=== PATIENT | female | born 1985 | race Caucasian/White ===

== ENCOUNTER → 2019-01-05 13:14 | Outpatient (CLI) | payer MEDICAID, SELFPAY ==
[2019-01-05 16:32] LABS: Chlamydia Trachomatis by PCR Negative (Negative)
[2019-01-05 16:33] LABS: Neisserai gonorrhoeae by PCR Negative (Negative); Probe Check PASS; Sample Adequacy Control PASS; Specimen Processing Control PASS
[2019-01-08 09:11] LABS: HPV Genotype 16, Aptima Negative (Negative)
[2019-01-08 13:08] LABS: HPV APTIMA, High Risk Positive (Negative); HPV Genotype 18,45 Aptima Negative (Negative)
== END ==
PROVIDERS: Visit Provider Obstetrics & Gynecology
DX: Z11.3 Encounter for screening for infections with a predominantly sexual mode of transmission (principal); Z12.4 Encounter for screening for malignant neoplasm of cervix
CPT/HCPCS: 87491; 87591; 87624; 88175; G0145

== ENCOUNTER → 2019-01-26 | Outpatient (CLI) | payer MEDICAID, SELFPAY ==
--- NOTE | 2019-01-26 10:30 | CER_PTH ---
PATIENT: AFSHIN SYKES LOC: [facility]#:[id number] AGE/SX: 33/F ROOM: RE01/26/[address]: Dr. 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 Rare endocervical glands present. No evidence of dysplasia. AM:jordyn 01/27/19 MICROSCOPIC DESCRIPTION Slides are reviewed. GROSS DESCRIPTION Received in fixative is one container labeled with the patient's name and designated ECC. The specimen consists of scant fragments of tissue, entirely submitted for cell block preparation. / SJ:jordyn 01/26/19 TC:5 CPT: 32183
== END | disposition home or self-care (01) ==
LOC: LABSPEC 13:15
PROVIDERS: Referring Provider Obstetrics & Gynecology; Visit Provider Obstetrics & Gynecology
DX: R87.810 Cervical high risk human papillomavirus (HPV) DNA test positive (principal)
CPT/HCPCS: 88305

== ENCOUNTER → 2020-08-23 11:32 | Outpatient (CLI) | payer MEDICAID, SELFPAY ==
[2020-08-23 11:41] LABS: Bacteria 0 SEEN /hpf (None Seen); Mucous, Urine 0 SEEN /hpf (<or=2+); Red Blood Cells-Urine 0 SEEN /hpf (0-5); Squamous Epithelial Cells - UA 0 SEEN /hpf (5-10); White Blood Cells 0 SEEN /hpf (0-5)
[2020-08-23 12:42] LABS: Color, Urine Straw (Yellow); Glucose, Dipstick 1000 mg/dl (Normal); Ketone-Dipstick Negative (Negative); Leukocyte Esterase-Dipstick Negative /ul (Negative); Nitrite-Dipstick Negative (Negative); Occult Blood-Urine Negative /ul (Negative); Protein-Dipstick Negative (Negative); Urine Bilirubin Dipstick Negative (Negative); Urine Clarity Sl. Cloudy (Clear); Urine Urobilinogen Normal (Normal)
[2020-08-29 16:50] LABS: HPV APTIMA, High Risk Negative (Negative)
== END ==
PROVIDERS: Visit Provider Obstetrics & Gynecology
DX: Z12.4 Encounter for screening for malignant neoplasm of cervix (principal); R35.0 Frequency of micturition
CPT/HCPCS: 81001; 87086; 87088; 87624; 88175; G0145

== ENCOUNTER → 2022-09-18 | Outpatient (CLI) | payer MEDICAID, SELFPAY ==
[2022-09-27 14:54] LABS: HPV APTIMA, High Risk Negative (Negative)
== END | disposition home or self-care (01) ==
LOC: LABSPEC 16:26
PROVIDERS: Visit Provider Student in an Organized Health Care Education/Training Program
DX: Z12.4 Encounter for screening for malignant neoplasm of cervix (principal)
CPT/HCPCS: 87624; 88175; G0145

== ENCOUNTER 2023-09-17 16:53 | Emergency (ER) | payer MEDICAID, SELFPAY ==
[2023-09-17 16:54] VITALS: BP 114/81; PULSE 107; RESP 14; TEMP 36.1; O2SAT 100; BMI 45.1
--- NOTE | 2023-09-17 16:55 | RAD_ITS ---
INDICATION: trauma EXAMINATION/TECHNIQUE: X-RAY - LEFT XR Hand Min 3 Views 3 VIEWS COMPARISON: FINDINGS: No acute fracture or dislocation. No destructive bone changes. Joint spaces are well-maintained. Normal alignment. Soft tissues are unremarkable. No radiopaque foreign body or soft tissue gas. RAD/Hand Min 3 Views IMPRESSION: Negative. Electronically Signed: Melissa Moreau MD at 17:26 EST Reading Location ID and State: [id number] / Tel , Service support ,
--- NOTE | 2023-09-17 17:40 | EDS_ITS ---
HPI <SPEEDY Carmona - Last Filed: 09/17/23 17:44> History of Present Illness Chief Complaint: Upper Extremity Injury Narrative Narrative: Patient states her fianc? was falling and she was trying to keep him from slipping when she fell and hit her left lateral hand on the ground. No wounds, weakness or paresthesias. She is right-hand dominant. PFSH <SPEEDY Carmona - Last Filed: 09/17/23 17:44> PFSH Allergy/AdvReac Type Severity Reaction Status Date / Time No Known Allergies Allergy Verified 09/17/23 16:54 ROS <SPEEDY Carmona Last Filed: 09/17/23 17:44> ROS ED ROS Narrative Neuro: Negative for motor/sensory dysfunction. Skin: Negative for wound. Musc: Positive for left hand pain, trauma. EXAM <SPEEDY Carmona Last Filed: 09/17/23 17:44> Physical Exam Narrative Exam Narrative: CONST: Patient sitting in no acute distress. EYES: Normal inspection. NECK: Normal inspection. RESP: No respiratory distress, CTAB. CVS: Regular rate and rhythm, no murmur, no gallop. SKIN: Color normal, no rash, warm, dry, intact. EXTREMITIES: Normal appearance of left upper extremity, slight tenderness over left proximal fifth metacarpal. No tenderness of the elbow wrist or the rest of the hand. Full range of motion, normal motor and sensory function in median radial ulnar distributions, 2+ radial pulse and brisk cap refill. NEURO: Oriented x4. PSYCH: Normal affect. Const Vital Signs: 09/17/23 16:54 Temperature 97 F L Temperature Source Temporal Pulse Rate 107 H Respiratory Rate 14 Blood Pressure 114/81 H Blood Pressure Mean 92 Pulse Ox 100 Oxygen Delivery Method Room Air MDM <SPEEDY Carmona Last Filed: 09/17/23 17:44> MDM MDM Narrative Medical decision making narrative: Patient had mechanical fall injuring her left hand. No external signs of trauma. Slight tenderness over the fifth metacarpal. Neurovascular intact. Differential includes contusion versus fracture. ED attending interpretation of left hand x-ray shows no fracture or dislocation. She was treated with Motrin and given symptomatic care instructions and discharged in stable condition. Radiography Diagnostic Testing: Clinical Impression(s) from Imaging Studies Hand X-Ray 09/17/23 16:55 IMPRESSION: Negative. Electronically Signed: Melissa Moreau MD at 17:26 EST , <Dr. Eusebio Boyle MD - Last Filed: 09/17/23 17:51> [facility] Treatment and Re-Evaluation Narrative: I have personally performed a face to face assessment of the patient and have reviewed the ILEANA Note. I performed a substantive portion of the visit including all aspects of the following. My reaves findings include: History: Patient presents with left hand pain after hitting on the ground trying to catch someone. No other injury. No blood thinners. Pain is mostly in the dorsal aspect overlying the fifth metacarpal. Exam: Patient awake alert. There is no visible bruising. No deformity. Mild tenderness. Wrist is normal including snuffbox. Medical Decision Making: My independent interpretation of the patient's three- view x-ray left hand shows no sign of acute fracture and this is consistent with final reading. Discharge Plan Triage Chief Complaint: Upper Extremity Injury ED Midlevel Provider: Bell Nice ED Provider: Eusebio Boyle Dx/Rx/DC Orders Clinical Impression: Contusion of left hand Instructions: Bruises (Contusions) Primary Care Provider: Quang Gaming,Out of Referrals: Quang Gaming,Out of [Primary Care Provider] - Activity Restrictions/Additional Instructions: Ice and take Tylenol or Motrin as needed Disposition Disposition: Home, Self Care
[2023-09-17] MEDS: Ibuprofen 600 MG Tablet PO (18:07)
[2023-09-17 18:14] VITALS: RESP 14
== END 2023-09-17 18:14 | disposition home or self-care (01) ==
PROVIDERS: Emergency Provider Emergency Medicine; PCP Nurse Practitioner Family; Visit Provider Emergency Medicine
DX: S60.222A Contusion of left hand, initial encounter (principal); Y93.89 Activity, other specified; W19.XXXA Unspecified fall, initial encounter
CPT/HCPCS: 73130; 99282

== ENCOUNTER 2023-11-27 07:38 | Emergency (ER) | payer MEDICAID, SELFPAY ==
[2023-11-27 07:38] VITALS: BP 154/119; PULSE 84; RESP 16; TEMP 36.4; O2SAT 99; BMI 45.2
--- NOTE | 2023-11-27 07:59 | EDS_ITS ---
HPI History of Present Illness Chief Complaint: General Illness Informant: patient Narrative Narrative: Patient complains of being ill for almost 2 weeks. Symptoms started about 13 days ago. It started with nasal congestion. About 2 days later she developed a cough. No known productivity. Possibly some mild wheezing. She has had some slight diarrhea but no blood. She has vomited once or twice but only after excessive coughing. She is not nauseated. No abdominal pain. Does not have a thermometer but she has felt hot and cold. No known specific exposures. Patient does have a history of some reactive airway disease or mild asthma. Denies smoking. She is normally on Flonase albuterol. She has been out of her meds for about a month. But she is also been out of diltiazem, lisinopril, pravastatin, montelukast, Jardiance, Januvia, metformin, Actos, Imuran. [facility] Medical History (Updated 11/27/23 @ 10:[address] Eusebio Boyle MD) Asthma delivery delivered Diabetes Ectopic Hypercholesterolemia Hypertension Lupus Home Medications albuterol sulfate 90 mcg/actuation aerosol inhaler (Ventolin HFA) 2 puff inhalation Q4H PRN PRN Wheezing ##1 11/27/23 [Rx Last Taken Unknown] lisinopril 20 mg tablet 20 mg PO DAILY #30 tabs 11/27/23 [Rx Last Taken Unknown] metformin 1,000 mg tablet 1,000 mg PO BID #60 tabs 11/27/23 [Rx Last Taken Unknown] prednisone 20 mg tablet 60 mg (3 x 20 mg) PO DAILY #15 TABLETS 11/27/23 [Rx Last Taken Unknown] Allergy/AdvReac Type Severity Reaction Status Date / Time No Known Allergies Allergy Verified 11/27/23 07:38 Surgical History History of tonsillectomy and adenoidectomy Social History household members: significant other housing: house current occupational status: employed Smoking Status: Never smoker ROS ROS ED ROS Narrative A complete review of systems was performed and is negative except as documented in the history of present illness. Some specific details below. Constitutional: Positive chills. Has not been able to measure fever. Positive myalgias. EYE: No discharge, visual complaints, or pain. ENT: Nasal congestion. Mild drainage. No facial pain. No sore throat. CV: No chest pain palpitations or syncope or near syncope. Respiratory: See history of present illness. Coughing, occasional wheezing, no hemoptysis or sputum production. GI: No abdominal pain. No nausea but she has had posttussive vomiting. Mild diarrhea off and on. : No frequency dysuria or hematuria. Musculoskeletal: No recent trauma. She does have myalgias. Skin: No rash. Nondiaphoretic. Neuro: No weakness or numbness. Endocrine: No polyuria or polydipsia. EXAM Physical Exam Narrative Exam Narrative: CONSTITUTIONAL: Patient is nontoxic in appearance. The patient looks comfortable. Work of breathing looks normal. HEENT: No notable trauma. Mucous membranes moist. No erythema or exudate. Mild nasal congestion. EYES: No conjunctival injection. No proptosis. No icterus. NECK:No JVD. No stridor. CARDIOVASCULAR: Regular rate. Regular rhythm. No notable murmur. No JVD. No muffled tones. Peripheral pulses are normal. RESPIRATORY: No respiratory distress. Breathing is unlabored. She does have slight wheeze with cough. No pain with a deep breath. Saturations are normal at 99% on room air showing no hypoxia. GASTROINTESTINAL: Not distended. Bowel sounds are normal. No tenderness. No guarding. No rebound. No palpable mass. No bruit is heard. GENITOURINARY: No CVA tenderness. MUSCULOSKELETAL: Atraumatic. No peripheral edema. No cord. No tenderness along the deep venous system. No asymmetry. No distended veins. NEUROLOGICAL: Patient is alert and appropriate. No focal deficit noted. SKIN: No noted rashes. No diaphoresis. PSYCHIATRIC: Patient is calm. Mood is appropriate. Const Vital Signs: 11/27/23 07:38 11/27/23 08:00 11/27/23 08:20 Temperature 97.6 F L Temperature Source Temporal Pulse Rate 84 80 Respiratory Rate 16 16 Respiratory Effort Normal Non-Labored Respiratory Pattern Normal Normal Blood Pressure 154/119 H Blood Pressure Mean 130 Pulse Ox 99 Oxygen Delivery Method Room Air 11/27/23 08:23 Temperature Temperature Source Pulse Rate Respiratory Rate Respiratory Effort Respiratory Pattern Blood Pressure Blood Pressure Mean Pulse Ox 98 Oxygen Delivery Method Room Air MDM MDM MDM Narrative Medical decision making narrative: Patient is BGT was 297. Considering she is off multiple meds for diabetes that is not out rages. My independent interpretation of her two-view chest x-ray showed no acute process. Final reading was normal x-ray examination of the chest. I rechecked the patient. She feels better. She is moving air better. She states she does have albuterol at home but will be out soon. Because she has a history of asthma and is having more wheezing and coughing we will treat her with steroids. She is also COVID-positive. She but she has had symptoms for almost 2 weeks. Paxil it is not an option. I will restart her on some of her meds in addition. She has limited financial resources so some of her meds are quite expensive. I will at least get her started on metformin and lisinopril that are affordable. She has reapplied for insurance. That is pending. Lab Data Labs: Laboratory Results - last 24 hr 11/27/23 09:01 POC Glucose 297 H Radiography Diagnostic Testing: Clinical Impression(s) from Imaging Studies Chest X-Ray 11/27/23 08:10 IMPRESSION: Normal x-ray examination of the chest. Electronically Signed: Juve Lane MD at 8:34 EST , Discharge Plan Triage Chief Complaint: General Illness ED Provider: Eusebio Boyle Dx/Rx/DC Orders Clinical Impression: Asthma exacerbation, COVID, Diabetes, Acute bronchospasm, Hypertension Instructions: Coronavirus Disease 2019 (COVID-19): Caring for Yourself or Others Prescriptions: New prednisone 20 mg tablet 60 mg PO DAILY Qty: 15 0RF albuterol sulfate [Ventolin HFA] 90 mcg/actuation HFA aerosol inhaler 2 puff inhalation Q4H PRN PRN (Reason: Wheezing) Qty: 1 0RF lisinopril 20 mg tablet 20 mg PO DAILY Qty: 30 0RF metformin 1,000 mg tablet 1,000 mg PO BID Qty: 60 0RF Primary Care Provider: Tayler Elizabeth NP Referrals: Tayler Elizabeth NP, [employer] [Primary Care Provider] - 3-5 Days Disposition Disposition: Home, Self Care
--- NOTE | 2023-11-27 08:10 | RAD_ITS ---
STUDY: X-RAY CHEST REASON FOR EXAM: Female, 38 years old. Two-week history of cough. TECHNIQUE: COMPARISON: None. FINDINGS: The lungs are clear and expanded. There is no demonstrated pleural abnormality. Normal size heart. Normal mediastinum and butch. Normal visualized pulmonary arteries. Normal visualized aortic arch and descending thoracic aorta. There are degenerative changes of the visualized thoracic spine. Normal visualized ribs, clavicles, and shoulders. There is no demonstrated abnormality of the visualized soft tissue structures of the upper abdomen. RAD/Chest PA and Lateral IMPRESSION: Normal x-ray examination of the chest. Electronically Signed: Juve Lane MD at 8:34 EST ,
[2023-11-27] MEDS: Ipratropium/Albuterol Sulfate 3 ML AMPUL.NEB INHALATION (08:17)
[2023-11-27 08:20] VITALS: PULSE 80; RESP 16
[2023-11-27 08:23] VITALS: O2SAT 98
[2023-11-27 09:19] LABS: Bedside Glucose 297 mg/dL (74-106)
== END 2023-11-27 10:56 | disposition home or self-care (01) ==
PROVIDERS: Emergency Provider Emergency Medicine; PCP Nurse Practitioner Family; Visit Provider Emergency Medicine
DX: U07.1 COVID-19 (principal); E11.9 Type 2 diabetes mellitus without complications; J45.901 Unspecified asthma with (acute) exacerbation; I10 Essential (primary) hypertension
CPT/HCPCS: 71046; 82962; 87631; 99282